=== PATIENT | male | born 1960 | race African-American/Black ===

== ENCOUNTER 2019-01-09 08:45 | Emergency (ER) | payer OTHER ==
[~2019-01-09] VITALS: Ht 180.3 cm; Wt 94.1 kg
[2019-01-09 08:49] VITALS: BP 149/107
--- NOTE | 2019-01-09 09:11 | NUR ---
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
--- NOTE | 2019-01-09 09:20 | NUR ---
Patient/Caregiver given discharge instructions and they have confirmed that they understand the instructions. Patient ambulatory with steady gait.
== END 2019-01-09 09:21 | disposition home or self-care (01) ==
LOC: ED 09:14
DX: I10 Essential (primary) hypertension (principal); Z76.0 Encounter for issue of repeat prescription; Z87.891 Personal history of nicotine dependence
CPT/HCPCS: 99283

== ENCOUNTER 2019-11-22 18:50 | Emergency (ER) | payer SELFPAY ==
[~2019-11-22] VITALS: Ht 180.3 cm; Wt 93.0 kg
[2019-11-22 18:51] VITALS: BP 161/115
== END 2019-11-22 20:14 | disposition home or self-care (01) ==
LOC: ED 20:00
DX: I10 Essential (primary) hypertension (principal); Z76.0 Encounter for issue of repeat prescription
CPT/HCPCS: 99283

== ENCOUNTER 2020-10-31 16:03 | Emergency (ER) | payer SELFPAY ==
[~2020-10-31] VITALS: Ht 180.3 cm; Wt 93.1 kg
[2020-10-31 16:13] VITALS: BP 135/69
[2020-10-31] MEDS ORDERED: HYDROcodone/APAP 5/325 TABLET ONE (16:27)
[2020-10-31] MEDS ORDERED: HYDROcodone/APAP 5/325 TABLET PO ONE (16:30)
--- NOTE | 2020-10-31 16:31 | NUR ---
[employer] REFINING EQUIPMENT OPERATOR PER MAR
== END 2020-10-31 16:45 | disposition home or self-care (01) ==
LOC: ED 16:33
DX: K02.9 Dental caries, unspecified (principal); I10 Essential (primary) hypertension
CPT/HCPCS: 99283

== ENCOUNTER 2021-01-03 18:31 | Emergency (ER) | payer BC ==
[~2021-01-03] VITALS: Ht 180.3 cm; Wt 90.0 kg
--- NOTE | 2021-01-03 19:09 | NUR ---
REPORT TO SHRAVAN, TRANSFER OF CARE AT THIS TIME.
--- NOTE | 2021-01-03 19:18 | NUR ---
Trudy carrasco in [facility] - 01/03/21 at 1918 by BRETT REPORT TO SHRAVAN, TRANSFER OF CARE AT THIS TIME.
[2021-01-03 19:39] LABS: BASOPHILS % (AUTO) 1 % (0-1); EOSINOPHILS % (AUTO) 3 % (1-7); LYMPHOCYTES % (AUTO) 21 % (22-44); MEAN CORPUSCULAR HEMOGLOBIN 29.5 pg (27.5-34.5); MEAN CORPUSCULAR HGB CONC 33.6 g/dL (33.2-36.2); MEAN PLATELET VOLUME 9.7 fL (7.4-10.4); MONOCYTES % (AUTO) 8 % (2-9); NEUTROPHILS % (AUTO) 67 % (42-75); PLATELET COUNT 195 x10^3/uL (130-400); RED BLOOD COUNT 4.76 x10^6/uL (4.38-5.82)
[2021-01-03 19:49] LABS: ALANINE AMINOTRANSFERASE 37 U/L (12-78); ALBUMIN 4.1 g/dL (3.4-5.0); ANION GAP 6 mmol/L (5-15); CALCIUM 9.5 mg/dL (8.5-10.1); CHLORIDE 106 mmol/L (98-107); CREATININE 1.83 mg/dL (0.7-1.3)
[2021-01-03 19:53] LABS: ALKALINE PHOSPHATASE 60 U/L (45-117); BILIRUBIN,TOTAL 0.4 mg/dL (0.2-1.0); TROPONIN I < 0.015 ng/mL (0.000-0.045)
[2021-01-03] MEDS ORDERED: SODIUM CHLORIDE FLUSH 10ML SYR IVF ONE (20:30)
[2021-01-03] MEDS ORDERED: SODIUM CHLORIDE 0.9% 1,000ML IVBOLUS ONE (20:30)
[2021-01-03 21:33] VITALS: BP 118/84
== END 2021-01-03 21:38 | disposition home or self-care (01) ==
LOC: ED 19:38
DX: R06.00 Dyspnea, unspecified (principal); I12.9 Hypertensive chronic kidney disease with stage 1 through stage 4 chronic kidney disease, or unspecified chronic kidney disease; N18.9 Chronic kidney disease, unspecified
CPT/HCPCS: 36415; 71045; 80053; 83880; 84484; 85025; 93005; 96360; 99285; J7030

== ENCOUNTER 2021-01-10 10:52 | Emergency (ER) | payer BC ==
[~2021-01-10] VITALS: Ht 180.3 cm; Wt 97.0 kg
[2021-01-10] MEDS ORDERED: SODIUM CHLORIDE FLUSH 10ML SYR IVF ONE (12:30)
[2021-01-10] MEDS ORDERED: SODIUM CHLORIDE 0.9% 1,000ML IVBOLUS ONE (12:30)
[2021-01-10 13:07] LABS: BASOPHILS % (AUTO) 2 % (0-1); EOSINOPHILS % (AUTO) 2 % (1-7); LYMPHOCYTES % (AUTO) 15 % (22-44); MEAN CORPUSCULAR HEMOGLOBIN 29.7 pg (27.5-34.5); MEAN CORPUSCULAR HGB CONC 33.9 g/dL (33.2-36.2); MEAN PLATELET VOLUME 10.4 fL (7.4-10.4); MONOCYTES % (AUTO) 12 % (2-9); NEUTROPHILS % (AUTO) 70 % (42-75); PLATELET COUNT 198 x10^3/uL (130-400); RED BLOOD COUNT 4.81 x10^6/uL (4.38-5.82); RED CELL DISTRIBUTION WIDTH 13.9 % (9.4-14.8)
[2021-01-10 13:16] LABS: ALANINE AMINOTRANSFERASE 31 U/L (12-78); ALBUMIN 4.1 g/dL (3.4-5.0); ANION GAP 4 mmol/L (5-15); CALCIUM 9.1 mg/dL (8.5-10.1); CHLORIDE 106 mmol/L (98-107); CREATININE 1.51 mg/dL (0.7-1.3)
[2021-01-10 13:18] LABS: ALKALINE PHOSPHATASE 55 U/L (45-117); BILIRUBIN,TOTAL 0.8 mg/dL (0.2-1.0)
--- NOTE | 2021-01-10 16:00 | NUR ---
PT RESTING IN BED, PT A/O X4 WITH EQUAL AND UNLABORED BREATHS.. PT AWARE OF ED CARE PLAN. PT DENIED ANY CURRENT WANTS OR NEEDS.
[2021-01-10] MEDS ORDERED: FILTER 0.22 MICRON IV ONE (18:30)
[2021-01-10] MEDS ORDERED: CASIRIVIMAB 600 MG, IMDEVIMAB (REGN10987) 600 MG in SODIUM CHLORIDE 0.9% 250 ML IVPB ONE (18:30)
--- NOTE | 2021-01-10 18:50 | NUR ---
PT MEDICATED PER MAR
--- NOTE | 2021-01-10 19:33 | NUR ---
PT RESTING IN BED, PT A/O X4 WITH EQUAL AND UNLABORED BREATHS.. PT AWARE OF ED CARE PLAN. PT DENIED ANY CURRENT WANTS OR NEEDS. PT SHOWING NO SIGNS OF REACTION.
[2021-01-10] MEDS ORDERED: ZINC SULFATE 220 MG CAPSULE PO ONE (20:54)
[2021-01-10] MEDS ORDERED: ZINC SULFATE 220 MG CAPSULE ONE (21:43)
[2021-01-10 21:44] VITALS: BP 138/91
== END 2021-01-10 21:47 | disposition home or self-care (01) ==
LOC: ED 13:29
DX: U07.1 COVID-19 (principal); I10 Essential (primary) hypertension; Z87.891 Personal history of nicotine dependence
CPT/HCPCS: 36415; 71045; 80053; 83605; 85025; 87040; 87635; 93005; 96360; 99285; J7030; M0243; U0003; U0005

== ENCOUNTER 2021-01-13 05:56 | Emergency (ER) | payer BC ==
[~2021-01-13] VITALS: Ht 177.8 cm; Wt 77.9 kg
[2021-01-13 06:01] VITALS: BP 116/85
--- NOTE | 2021-01-13 07:54 | NUR ---
DC PER DR. VARELA FROM [facility]
--- NOTE | 2021-01-13 07:54 | NUR ---
Patient/Caregiver given discharge instructions and they have confirmed that they understand the instructions. Patient ambulatory with steady gait. NAD, all questions answered appropriately, denies additional needs at this time. No personal belongings left in room after discharge.
== END 2021-01-13 07:56 | disposition home or self-care (01) ==
LOC: ED 06:04
DX: U07.1 COVID-19 (principal); J40 Bronchitis, not specified as acute or chronic; R05 Cough
CPT/HCPCS: 99283

== ENCOUNTER 2021-01-24 03:31 | Emergency (ER) | payer BC ==
[~2021-01-24] VITALS: Ht 180.3 cm; Wt 92.6 kg
--- NOTE | 2021-01-24 03:35 | NUR ---
BIB EMS PER EMS REPORT PT CALLED BECAUSE HE WAS FEELING IF HIS BP WAS HIGH. PT USED ALBUTEROL INHALER AROUND 0300 PRIOR TO THIS FEELING. PER EMS BP 130/90, HR 87, 99%, 98.8F.
--- NOTE | 2021-01-24 04:06 | NUR ---
Patient is resting comfortably in bed. Bed in lowest, rails engaged, call light on lap. Vital Signs within normal limits. PT STATES "MAYBE IM JUST HAVING ANXIETY NOW ABOUT THESE THINGS". WCTM.
--- NOTE | 2021-01-24 04:30 | NUR ---
REPORT FROM VALE CAVAZOS
--- NOTE | 2021-01-24 04:30 | NUR ---
REPORT TO PETR CAVAZOS, PT CARE TRANSFERRED AT THIS TIME. PT NAD, Patient is resting comfortably in bed. Bed in lowest, rails engaged, call light on lap. VSS, EVEN AND UNLABORED RESPIRATIONS NOTED. CARLITOS.
--- NOTE | 2021-01-24 05:24 | NUR ---
PT AMBULATORY TO RESTROOM WITH STEADY GAIT
[2021-01-24 06:37] LABS: BASOPHILS % (AUTO) 2 % (0-1); EOSINOPHILS % (AUTO) 3 % (1-7); LYMPHOCYTES % (AUTO) 24 % (22-44); MEAN CORPUSCULAR HEMOGLOBIN 29.8 pg (27.5-34.5); MEAN CORPUSCULAR HGB CONC 33.8 g/dL (33.2-36.2); MEAN PLATELET VOLUME 9.9 fL (7.4-10.4); MONOCYTES % (AUTO) 8 % (2-9); NEUTROPHILS % (AUTO) 64 % (42-75); PLATELET COUNT 204 x10^3/uL (130-400); RED BLOOD COUNT 4.83 x10^6/uL (4.38-5.82); RED CELL DISTRIBUTION WIDTH 14.3 % (9.4-14.8)
[2021-01-24 06:39] LABS: ALBUMIN 4.2 g/dL (3.4-5.0); ANION GAP 6 mmol/L (5-15); CALCIUM 9.2 mg/dL (8.5-10.1); CHLORIDE 107 mmol/L (98-107)
[2021-01-24 06:47] LABS: TROPONIN I < 0.015 ng/mL (0.000-0.045)
[2021-01-24 07:07] LABS: FREE T4 (FREE THYROXINE) 0.67 ng/dL (0.76-1.46)
--- NOTE | 2021-01-24 08:10 | NUR ---
PT RESTING. DENIES COMPLAINTS
[2021-01-24 09:04] VITALS: BP 110/87
== END 2021-01-24 09:06 | disposition home or self-care (01) ==
LOC: ED 05:53
DX: R00.2 Palpitations (principal); E03.9 Hypothyroidism, unspecified; J44.9 Chronic obstructive pulmonary disease, unspecified; I10 Essential (primary) hypertension; Z87.891 Personal history of nicotine dependence
CPT/HCPCS: 36415; 80048; 82040; 83735; 84439; 84443; 84484; 85025; 93005; 99285